=== PATIENT | male | born 1965 | race Caucasian/White ===

== ENCOUNTER 2017-11-25 14:02 | Emergency (ER) | payer OTHER ==
[2017-11-25] MEDS: ASPIRIN 325 MG TAB PO (14:30)
[2017-11-25] MEDS: LIDOCAINE/MYLANTA 40 ML BTL PO (14:30)
[2017-11-25 14:32] LABS: ADD MAN DIFF? NO
[2017-11-25 14:34] LABS: BASOPHIL # 0.1 10^3/ul (0.0-0.1); BASOPHILS % 0.6 % (0.0-2.0); EOSINOPHILS # 0.2 10^3/ul (0.0-0.5); HEMATOCRIT 43.3 % (42.0-52.0); HEMOGLOBIN 15.2 g/dl (14.0-18.0); LYMPHOCYTES # 4.1 10^3/ul (0.8-2.9); LYMPHOCYTES % 42.4 % (15.0-51.0); MEAN CORPUSCULAR HEMOGLOBIN 30.6 pg (29.0-33.0); MEAN CORPUSCULAR HGB CONC 35.1 g/dl (32.0-37.0); MEAN CORPUSCULAR VOLUME 87.1 fl (82.0-101.0); MEAN PLATELET VOLUME 10.1 fl (7.4-10.4); MONOCYTE # 0.8 10^3/ul (0.3-0.9); MONOCYTES % 8.4 % (0.0-11.0); NEUTROPHIL # 4.4 10^3/ul (1.6-7.5); NEUTROPHILS % 46.3 % (39.0-77.0); POSITIVE DIFF @See below; RED BLOOD COUNT 4.97 10^6/ul (4.70-6.10); RED CELL DISTRIBUTION WIDTH 11.7 % (11.5-14.5)
[2017-11-25 14:34] LABS: WHITE BLOOD COUNT 9.6 10^3/ul (4.8-10.8)
[2017-11-25 14:37] LABS: PLATELET COUNT 234 10^3/UL (140-415)
[2017-11-25 14:55] LABS: ANION GAP 18 (8-16); BLOOD UREA NITROGEN 11 mg/dl (7-20); CARBON DIOXIDE 22 mmol/L (21-31); CHLORIDE 105 mmol/L (97-110); GLUCOSE 143 mg/dl (70-220); POTASSIUM 4.7 mmol/L (3.5-5.1); SODIUM 140 mmol/L (135-144)
[2017-11-25 15:07] LABS: B-TYPE NATRIURETIC PEPTIDE 46 PG/ML (0-125)
[2017-11-25 15:09] LABS: TROPONIN-I < 0.012 ng/ml (0.000-0.120)
== END 2017-11-25 16:39 | disposition home or self-care (01) ==
LOC: E/R 14:02
DX: R42 Dizziness and giddiness (principal); E11.9 Type 2 diabetes mellitus without complications; I25.2 Old myocardial infarction; Z79.4 Long term (current) use of insulin; Z79.82 Long term (current) use of aspirin; Z79.84 Long term (current) use of oral hypoglycemic drugs; Z87.891 Personal history of nicotine dependence; Z98.61 Coronary angioplasty status
CPT/HCPCS: 36415; 71045; 80048; 83880; 84484; 85025; 93005; 99285-25

== ENCOUNTER 2017-12-20 10:23 | Day surgery (SDC) | payer OTHER ==
[2017-12-20] MEDS ORDERED: PROPOFOL 20 ML (13:51)
[2017-12-20] MEDS ORDERED: GLYCOPYRROLATE 0.4 MG INJ (13:51)
[2017-12-20] MEDS ORDERED: ROCURONIUM 50 MG INJ (13:51)
[2017-12-20] MEDS ORDERED: LIDOCAINE 2% (SDV) 5 ML INJ (13:51)
[2017-12-20] MEDS ORDERED: NEOSTIGMINE 3 MG/3 ML SYRINGE (13:51)
[2017-12-20] MEDS ORDERED: FENTAnyl 50 MCG/ML VIAL (13:52)
[2017-12-20] MEDS ORDERED: MIDAZOLAM 1 MG/ML 2 ML INJ (13:52)
[2017-12-20] MEDS ORDERED: SUCCINYLCHOLINE CHLORIDE 100 MG/5 ML SYG IV (13:54)
[2017-12-20] MEDS ORDERED: LABETALOL HCL 20MG INJ (14:21)
[2017-12-20] MEDS: COCAINE 4% 4 ML TOP (14:25)
[2017-12-20] MEDS ORDERED: HYDROmorphONE 1 MG/5 ML IV SYRINGE IV ×3 (14:54→16:30)
[2017-12-20] MEDS ORDERED: ONDANSETRON 4 MG INJ (14:54)
[2017-12-20] MEDS: HYDROmorphONE 1 MG/5 ML IV SYRINGE IV ×3 (14:57→16:19)
[2017-12-20] MEDS: ONDANSETRON 4 MG INJ IV (14:57)
[2017-12-20] MEDS ORDERED: hydrALAzine 20 MG INJ IV (15:00)
[2017-12-20] MEDS ORDERED: LABETALOL HCL 20MG INJ IV (15:00)
[2017-12-20] MEDS ORDERED: MEPERIDINE 25 MG INJ IV (15:00)
== END 2017-12-20 16:46 | disposition home or self-care (01) ==
LOC: SDS 10:23
DX: J38.1 Polyp of vocal cord and larynx (principal); E11.9 Type 2 diabetes mellitus without complications; I25.10 Atherosclerotic heart disease of native coronary artery without angina pectoris; E78.5 Hyperlipidemia, unspecified; Z87.891 Personal history of nicotine dependence; I25.2 Old myocardial infarction
CPT/HCPCS: 31526; 82962; 88305

== ENCOUNTER 2018-03-27 08:43 | Inpatient (IN) | payer OTHER ==
[2018-03-27] MEDS: DEXTROSE 5%-0.45% NACL 1,000 ML IV ×2 (10:33→21:54)
[2018-03-27] MEDS ORDERED: GLUCOSE GEL 15 GRAM TUBE PO ×2 (11:00)
[2018-03-27] MEDS ORDERED: ACETAMINOPHEN 650 MG SUPP PR (11:00)
[2018-03-27] MEDS ORDERED: ONDANSETRON 4 MG INJ IV (11:00)
[2018-03-27] MEDS ORDERED: GLUCOSE GEL 15 GRAM TUBE BUCCAL (11:00)
[2018-03-27] MEDS ORDERED: ACETAMINOPHEN 325 MG TAB PO (11:00)
[2018-03-27] MEDS ORDERED: NACL 0.9% 3 ML SYG IV (11:00)
[2018-03-27] MEDS ORDERED: DEXTROSE 50% 50 ML SYRINGE IV ×2 (11:00)
[2018-03-27] MEDS ORDERED: GLUCAGON 1 MG INJ IM (11:00)
[2018-03-27] MEDS: SUCRALFATE (100 MG/ML) 10ML CUP PO ×3 (12:28→21:00)
[2018-03-27] MEDS: INSULIN GLARGINE [LANTus] (100 UNITS/ML) SYG SC (12:56)
[2018-03-27] MEDS: INSULIN ASPART [NOVOLOG] 3 ML PEN SC ×3 (13:00→21:00)
[2018-03-27] MEDS: CIPROFLOXACIN 400MG/D5W 200 ML IVPB (13:22)
[2018-03-27] MEDS: metroNIDAZOLE 500 MG/NS (PMX) 100 ML IVPB ×2 (15:09→22:54)
[2018-03-27] MEDS ORDERED: NON-FORMULARY/PATIENT OWN MED (Icosapent Ethyl (Vascepa) 2 GM) PO (21:00)
[2018-03-27] MEDS: GEMFIBROZIL 600 MG TAB PO (21:00)
[2018-03-27] MEDS: TAMSULOSIN (SR) 0.4 MG CAP PO (21:00)
[2018-03-27] MEDS: IOHEXOL 14.3 MG(I)/ML (ADULT) BTL PO (21:54)
[2018-03-27] MEDS: PANTOPRAZOLE 40 MG INJ IV (21:58)
[2018-03-27 22:36] LABS: ADD UMIC NO; UR ASCORBIC ACID NEGATIVE (NEGATIVE); UR BILIRUBIN (Dip) NEGATIVE (NEGATIVE); UR BLOOD (Dip) NEGATIVE (NEGATIVE); UR CLARITY CLEAR (CLEAR); UR COLOR YELLOW (YELLOW); UR GLUCOSE (Dip) NEGATIVE (NEGATIVE); UR KETONES (Dip) NEGATIVE (NEGATIVE); UR LEUKOCYTE ESTERASE (Dip) NEGATIVE Leu/ul (NEGATIVE); UR NITRITE (Dip) NEGATIVE (NEGATIVE); UR SPECIFIC GRAVITY (Dip) 1.011 (1.003-1.030); UR TOTAL PROTEIN (Dip) NEGATIVE (NEGATIVE); UR UROBILINOGEN (Dip) NEGATIVE (NEGATIVE)
[2018-03-27] MEDS: IOHEXOL 300MG/ML 150 ML BTL (23:57)
[2018-03-27] MEDS: SOD CHLORIDE 0.9% 100 ML (23:57)
[2018-03-28] MEDS: CIPROFLOXACIN 400MG/D5W 200 ML IVPB ×3 (00:03→20:31)
[2018-03-28] MEDS: INSULIN ASPART [NOVOLOG] 3 ML PEN SC ×6 (00:57→20:37)
[2018-03-28 01:28] LABS: BLOOD UREA NITROGEN 8 mg/dl (7-20)
[2018-03-28 01:28] LABS: CREATININE 0.81 mg/dl (0.61-1.24)
[2018-03-28] MEDS: ACCU-CHEK XX (02:00)
[2018-03-28] MEDS: metroNIDAZOLE 500 MG/NS (PMX) 100 ML IVPB ×3 (05:27→22:01)
[2018-03-28] MEDS: DEXTROSE 5%-0.45% NACL 1,000 ML IV ×3 (05:31→16:33)
[2018-03-28 05:36] LABS: ADD MAN DIFF? NO
[2018-03-28 05:45] LABS: BASOPHILS % 0.3 % (0.0-2.0); EOSINOPHILS # 0.7 10^3/ul (0.0-0.5); EOSINOPHILS % 6.2 % (0.0-7.0); HEMATOCRIT 34.4 % (42.0-52.0); HEMOGLOBIN 12.2 g/dl (14.0-18.0); LYMPHOCYTES # 3.6 10^3/ul (0.8-2.9); LYMPHOCYTES % 33.6 % (15.0-51.0); MEAN CORPUSCULAR HEMOGLOBIN 30.5 pg (29.0-33.0); MEAN CORPUSCULAR HGB CONC 35.5 g/dl (32.0-37.0); MEAN PLATELET VOLUME 9.7 fl (7.4-10.4); MONOCYTES % 9.6 % (0.0-11.0); NEUTROPHIL # 5.3 10^3/ul (1.6-7.5); NEUTROPHILS % 49.9 % (39.0-77.0); PLATELET COUNT 262 10^3/UL (140-415); RED CELL DISTRIBUTION WIDTH 11.6 % (11.5-14.5)
[2018-03-28 05:45] LABS: WHITE BLOOD COUNT 10.6 10^3/ul (4.8-10.8)
[2018-03-28 06:11] LABS: LIPASE 28 U/L (23-300)
[2018-03-28 06:11] LABS: AMYLASE 43 U/L (11-123)
[2018-03-28 06:17] LABS: ALANINE AMINOTRANSFERASE 47 IU/L (13-69); ALBUMIN 3.2 g/dl (3.3-4.9); ALBUMIN/GLOBULIN RATIO 1.18; ALKALINE PHOSPHATASE 63 IU/L (42-121); ANION GAP 9 (5-13); ASPARTATE AMINO TRANSFERASE 21 IU/L (15-46); BILIRUBIN,INDIRECT 0.5 mg/dl (0-1.1); BILIRUBIN,TOTAL 0.5 mg/dl (0.2-1.3); BLOOD UREA NITROGEN 7 mg/dl (7-20); CALCIUM 8.9 mg/dl (8.4-10.2); CARBON DIOXIDE 25 mmol/L (21-31); CHLORIDE 105 mmol/L (97-110); CHOL/HDL RATIO 2.2 RATIO; CHOLESTEROL 87 mg/dl (100-200); CREATININE 0.78 mg/dl (0.61-1.24); GLUCOSE 97 mg/dl (70-220); HDL CHOLESTEROL 38 mg/dl (28-71); LDL CHOLESTEROL,CALCULATED 26 mg/dl; MAGNESIUM 1.8 mg/dl (1.7-2.5); PHOSPHORUS 4.1 mg/dl (2.5-4.9); POTASSIUM 3.4 mmol/L (3.5-5.1); SODIUM 139 mmol/L (135-144); TOTAL PROTEIN 5.9 g/dl (6.1-8.1); TRIGLYCERIDES 115 mg/dl (0-149)
[2018-03-28 06:28] LABS: HEMOGLOBIN A1C 6.5 % (0-5.9)
[2018-03-28] MEDS: GEMFIBROZIL 600 MG TAB PO ×2 (09:11→22:01)
[2018-03-28] MEDS: PANTOPRAZOLE 40 MG INJ IV ×2 (09:11→20:31)
[2018-03-28] MEDS: SUCRALFATE (100 MG/ML) 10ML CUP PO ×4 (09:11→20:30)
[2018-03-28] MEDS: ASPIRIN 81 MG TAB PO (09:11)
[2018-03-28] MEDS: LISINOPRIL 5 MG TAB PO (09:12)
[2018-03-28] MEDS: INSULIN GLARGINE [LANTus] (100 UNITS/ML) SYG SC (09:13)
[2018-03-28] MEDS: POTASSIUM CHLORIDE (SR) 20 MEQ TAB PO (09:46)
[2018-03-28] MEDS: FOSFOMYCIN 3 GM PACKET PO (11:54)
[2018-03-28] MEDS: TAMSULOSIN (SR) 0.4 MG CAP PO (20:31)
[2018-03-29] MEDS: ACCU-CHEK XX (01:05)
[2018-03-29] MEDS: DEXTROSE 5%-0.45% NACL 1,000 ML IV ×5 (02:23→22:33)
[2018-03-29] MEDS: metroNIDAZOLE 500 MG/NS (PMX) 100 ML IVPB ×3 (05:26→23:37)
[2018-03-29 05:42] LABS: ADD MAN DIFF? NO
[2018-03-29 05:52] LABS: BASOPHILS % 0.3 % (0.0-2.0); EOSINOPHILS # 0.7 10^3/ul (0.0-0.5); EOSINOPHILS % 6.6 % (0.0-7.0); HEMATOCRIT 33.6 % (42.0-52.0); HEMOGLOBIN 11.9 g/dl (14.0-18.0); LYMPHOCYTES # 3.6 10^3/ul (0.8-2.9); LYMPHOCYTES % 32.2 % (15.0-51.0); MEAN CORPUSCULAR HEMOGLOBIN 30.7 pg (29.0-33.0); MEAN CORPUSCULAR HGB CONC 35.4 g/dl (32.0-37.0); MEAN CORPUSCULAR VOLUME 86.6 fl (82.0-101.0); MEAN PLATELET VOLUME 9.7 fl (7.4-10.4); MONOCYTE # 0.9 10^3/ul (0.3-0.9); MONOCYTES % 8.4 % (0.0-11.0); NEUTROPHIL # 5.8 10^3/ul (1.6-7.5); NEUTROPHILS % 52.2 % (39.0-77.0); PLATELET COUNT 263 10^3/UL (140-415); RED BLOOD COUNT 3.88 10^6/ul (4.70-6.10); RED CELL DISTRIBUTION WIDTH 11.6 % (11.5-14.5)
[2018-03-29 05:52] LABS: WHITE BLOOD COUNT 11.1 10^3/ul (4.8-10.8)
[2018-03-29 06:20] LABS: ANION GAP 11 (5-13); BLOOD UREA NITROGEN 3 mg/dl (7-20); CALCIUM 8.4 mg/dl (8.4-10.2); CARBON DIOXIDE 23 mmol/L (21-31); CHLORIDE 108 mmol/L (97-110); CREATININE 0.71 mg/dl (0.61-1.24); Estimated GFR > 60 mL/min (>60); GLUCOSE 96 mg/dl (70-220); POTASSIUM 3.2 mmol/L (3.5-5.1); SODIUM 142 mmol/L (135-144)
[2018-03-29] MEDS: INSULIN ASPART [NOVOLOG] 3 ML PEN SC ×4 (08:00→20:43)
[2018-03-29] MEDS: PANTOPRAZOLE 40 MG INJ IV ×2 (09:03→20:24)
[2018-03-29] MEDS: CIPROFLOXACIN 400MG/D5W 200 ML IVPB ×2 (09:03→20:25)
[2018-03-29] MEDS: GEMFIBROZIL 600 MG TAB PO ×2 (09:04→20:25)
[2018-03-29] MEDS: LISINOPRIL 5 MG TAB PO (09:04)
[2018-03-29] MEDS: ASPIRIN 81 MG TAB PO (09:04)
[2018-03-29] MEDS: SUCRALFATE (100 MG/ML) 10ML CUP PO ×2 (09:04→12:34)
[2018-03-29] MEDS: INSULIN GLARGINE [LANTus] (100 UNITS/ML) SYG SC (09:18)
[2018-03-29] MEDS: morphine 2 MG INJ IV (09:19)
[2018-03-29 12:06] LABS: ERYTHROCYTE SEDIMENTATION RATE 19 mm/Hr (0-20)
[2018-03-29 12:34] LABS: C-REACTIVE PROTEIN 4.3 mg/dl (0.0-0.9)
[2018-03-29] MEDS: POTASSIUM CHLORIDE (SR) 20 MEQ TAB PO (12:35)
[2018-03-29] MEDS: BISACODYL (EC) 5 MG TAB PO (14:34)
[2018-03-29] MEDS: MAGNESIUM CITRATE 300 ML BTL PO (17:30)
[2018-03-29] MEDS: POLYETHYLENE GLYCOL 3350 119 GM POWDER PO (18:23)
[2018-03-29 19:19] LABS: TROPONIN-I < 0.012 ng/ml (0.000-0.120)
[2018-03-29] MEDS: TAMSULOSIN (SR) 0.4 MG CAP PO (20:24)
[2018-03-30 01:07] LABS: TROPONIN-I < 0.012 ng/ml (0.000-0.120)
[2018-03-30] MEDS: ACCU-CHEK XX (01:31)
[2018-03-30] MEDS: POLYETHYLENE GLYCOL 3350 119 GM POWDER PO (05:31)
[2018-03-30] MEDS: metroNIDAZOLE 500 MG/NS (PMX) 100 ML IVPB ×2 (05:31→14:14)
[2018-03-30] MEDS: INSULIN ASPART [NOVOLOG] 3 ML PEN SC ×3 (08:00→17:35)
[2018-03-30 08:23] LABS: ADD MAN DIFF? NO
[2018-03-30 08:27] LABS: WHITE BLOOD COUNT 9.5 10^3/ul (4.8-10.8)
[2018-03-30 08:27] LABS: BASOPHILS % 0.4 % (0.0-2.0); EOSINOPHILS # 0.6 10^3/ul (0.0-0.5); EOSINOPHILS % 6.1 % (0.0-7.0); HEMATOCRIT 34.2 % (42.0-52.0); HEMOGLOBIN 12.1 g/dl (14.0-18.0); LYMPHOCYTES # 2.9 10^3/ul (0.8-2.9); LYMPHOCYTES % 30.2 % (15.0-51.0); MEAN CORPUSCULAR HEMOGLOBIN 30.3 pg (29.0-33.0); MEAN CORPUSCULAR HGB CONC 35.4 g/dl (32.0-37.0); MEAN CORPUSCULAR VOLUME 85.7 fl (82.0-101.0); MEAN PLATELET VOLUME 9.7 fl (7.4-10.4); MONOCYTE # 0.8 10^3/ul (0.3-0.9); MONOCYTES % 8.7 % (0.0-11.0); NEUTROPHIL # 5.1 10^3/ul (1.6-7.5); NEUTROPHILS % 54.3 % (39.0-77.0); PLATELET COUNT 281 10^3/UL (140-415); RED BLOOD COUNT 3.99 10^6/ul (4.70-6.10); RED CELL DISTRIBUTION WIDTH 11.6 % (11.5-14.5)
[2018-03-30] MEDS: DEXTROSE 5%-0.45% NACL 1,000 ML IV ×2 (08:33→11:48)
[2018-03-30 08:43] LABS: ANION GAP 13 (5-13); BLOOD UREA NITROGEN 3 mg/dl (7-20); CARBON DIOXIDE 21 mmol/L (21-31); CHLORIDE 107 mmol/L (97-110); CREATININE 0.76 mg/dl (0.61-1.24); Estimated GFR > 60 mL/min (>60); GLUCOSE 108 mg/dl (70-220); MAGNESIUM 1.9 mg/dl (1.7-2.5); POTASSIUM 3.5 mmol/L (3.5-5.1); SODIUM 141 mmol/L (135-144)
[2018-03-30] MEDS: ASPIRIN 81 MG TAB PO (08:48)
[2018-03-30] MEDS: BISACODYL (EC) 5 MG TAB PO (08:48)
[2018-03-30] MEDS: CIPROFLOXACIN 400MG/D5W 200 ML IVPB (08:48)
[2018-03-30] MEDS: GEMFIBROZIL 600 MG TAB PO (08:48)
[2018-03-30] MEDS: PANTOPRAZOLE 40 MG INJ IV (08:48)
[2018-03-30 08:49] LABS: TROPONIN-I < 0.012 ng/ml (0.000-0.120)
[2018-03-30] MEDS: LISINOPRIL 5 MG TAB PO (08:49)
[2018-03-30] MEDS: INSULIN GLARGINE [LANTus] (100 UNITS/ML) SYG SC (08:51)
[2018-03-30 08:59] LABS: CHOL/HDL RATIO 1.8 RATIO; HDL CHOLESTEROL 45 mg/dl (28-71); LDL CHOLESTEROL,CALCULATED 19 mg/dl; TRIGLYCERIDES 83 mg/dl (0-149)
[2018-03-30 08:59] LABS: CHOLESTEROL 81 mg/dl (100-200)
== END 2018-03-30 18:55 | disposition home or self-care (01) | DRG 392 ==
LOC: 2NE 03-28 13:40 → 6WM 08:43 → PP2 21:10
PROVIDERS: Family Medicine
PROC: 0DB98ZX Excision of Duodenum, Via Natural or Artificial Opening Endoscopic, Diagnostic (ICD-10-PCS; principal; 2018-03-30 15:15)
PROC: 0DB68ZX Excision of Stomach, Via Natural or Artificial Opening Endoscopic, Diagnostic (ICD-10-PCS; 2018-03-30 15:15)
PROC: 0DBP8ZX Excision of Rectum, Via Natural or Artificial Opening Endoscopic, Diagnostic (ICD-10-PCS; 2018-03-30 15:15)
DX: K52.9 Noninfective gastroenteritis and colitis, unspecified (principal); N30.00 Acute cystitis without hematuria; I10 Essential (primary) hypertension; I25.10 Atherosclerotic heart disease of native coronary artery without angina pectoris; E78.5 Hyperlipidemia, unspecified; N40.0 Benign prostatic hyperplasia without lower urinary tract symptoms; E11.9 Type 2 diabetes mellitus without complications; I25.2 Old myocardial infarction; Z87.891 Personal history of nicotine dependence; K62.1 Rectal polyp; Z79.82 Long term (current) use of aspirin
CPT/HCPCS: 74018; 74177; 80048; 80053; 80061; 81003; 82150; 82565; 82962; 83036; 83690; 83735; 84100; 84484; 84520; 85025; 85651; 86140; 87040; 87045; 87075; 87086; 87177; 88305; 88312; 93005; 93306

== ENCOUNTER 2018-09-20 06:24 | Inpatient (IN) | payer OTHER ==
[2018-09-20 07:09] LABS: WHITE BLOOD COUNT 11.1 10^3/ul (4.8-10.8)
[2018-09-20 07:09] LABS: ADD MAN DIFF? NO; BASOPHIL # 0.1 10^3/ul (0.0-0.1); BASOPHILS % 0.4 % (0.0-2.0); EOSINOPHILS # 0.2 10^3/ul (0.0-0.5); EOSINOPHILS % 1.9 % (0.0-7.0); HEMATOCRIT 39.7 % (42.0-52.0); HEMOGLOBIN 13.7 g/dl (14.0-18.0); LYMPHOCYTES # 4.7 10^3/ul (0.8-2.9); MEAN CORPUSCULAR HGB CONC 34.5 g/dl (32.0-37.0); MEAN CORPUSCULAR VOLUME 86.9 fl (82.0-101.0); MEAN PLATELET VOLUME 9.3 fl (7.4-10.4); NEUTROPHIL # 5.2 10^3/ul (1.6-7.5); NEUTROPHILS % 46.4 % (39.0-77.0); PLATELET COUNT 320 10^3/UL (140-415); RED BLOOD COUNT 4.57 10^6/ul (4.70-6.10); RED CELL DISTRIBUTION WIDTH 11.5 % (11.5-14.5)
[2018-09-20] MEDS ORDERED: IODIXANOL LOCM 100 ML BTL (07:14)
[2018-09-20] MEDS ORDERED: LIDOCAINE 1% (MDV) 20 ML INJ (07:14)
[2018-09-20] MEDS ORDERED: MIDAZOLAM 1 MG/ML 2 ML INJ (07:14)
[2018-09-20] MEDS ORDERED: HEPARIN 1000 UNITS/ML 10 ML INJ (07:14)
[2018-09-20] MEDS ORDERED: NITROGLYCERIN (IC) 100 MCG/ML INJ (07:16)
[2018-09-20] MEDS ORDERED: VERAPAMIL 5 MG INJ (07:16)
[2018-09-20] MEDS ORDERED: FENTAnyl 50 MCG/ML VIAL (07:16)
[2018-09-20 07:35] LABS: INR 0.86; PROTIME 11.8 Sec (11.9-14.9); PT RATIO 0.9
[2018-09-20 07:42] LABS: PARTIAL THROMBOPLASTIN TIME 23.9 Sec (23.0-35.0)
[2018-09-20 07:44] LABS: ALANINE AMINOTRANSFERASE 15 IU/L (13-69); ALBUMIN 4.4 g/dl (3.3-4.9); ALBUMIN/GLOBULIN RATIO 1.33; ALKALINE PHOSPHATASE 86 IU/L (42-121); ANION GAP 12 (5-13); ASPARTATE AMINO TRANSFERASE 18 IU/L (15-46); BILIRUBIN,INDIRECT 0.3 mg/dl (0-1.1); BILIRUBIN,TOTAL 0.3 mg/dl (0.2-1.3); BLOOD UREA NITROGEN 15 mg/dl (7-20); CALCIUM 9.8 mg/dl (8.4-10.2); CARBON DIOXIDE 25 mmol/L (21-31); CHLORIDE 102 mmol/L (97-110); CREATININE 0.68 mg/dl (0.61-1.24); Estimated GFR > 60 mL/min (>60); GLUCOSE 156 mg/dl (70-220); POTASSIUM 4.3 mmol/L (3.5-5.1); SODIUM 139 mmol/L (135-144); TOTAL PROTEIN 7.7 g/dl (6.1-8.1)
[2018-09-20] MEDS: SOD CHLORIDE 0.9% 1,000 ML IV (09:24)
[2018-09-20] MEDS: ASPIRIN 81 MG TAB PO (09:34)
[2018-09-20] MEDS ORDERED: ONDANSETRON 4 MG INJ IV (13:00)
[2018-09-20] MEDS ORDERED: NACL 0.9% 3 ML SYG IV (13:00)
[2018-09-20] MEDS ORDERED: ACETAMINOPHEN 325 MG TAB PO (13:00)
[2018-09-20] MEDS ORDERED: GLUCAGON 1 MG INJ IM (14:00)
[2018-09-20] MEDS ORDERED: DEXTROSE 50% 50 ML SYRINGE IV ×2 (14:00)
[2018-09-20] MEDS ORDERED: GLUCOSE GEL 15 GRAM TUBE PO ×2 (14:00)
[2018-09-20] MEDS ORDERED: GLUCOSE GEL 15 GRAM TUBE BUCCAL (14:00)
[2018-09-20] MEDS: CEFAZOLIN 2 GM/50 ML (PMX) 50 ML IVPB (15:05)
[2018-09-20] MEDS: INSULIN ASPART [NOVOLOG] 3 ML PEN SC ×3 (17:45→20:56)
[2018-09-20] MEDS: ATORVASTATIN 40 MG TAB PO (20:47)
[2018-09-20] MEDS: METOPROLOL 25 MG TAB PO (20:47)
[2018-09-20] MEDS: TAMSULOSIN (SR) 0.4 MG CAP PO (20:47)
[2018-09-20] MEDS: INSULIN GLARGINE [LANTus] (100 UNITS/ML) SYG SC (20:53)
[2018-09-20 23:31] LABS: AMPHETAMINE/METHAMPHETAMINE Negative (NEGATIVE); BARBITURATES Negative (NEGATIVE); BENZODIAZEPINES Positive (NEGATIVE); CANNABINOIDS Negative (NEGATIVE); COCAINE Negative (NEGATIVE); OPIATES Negative (NEGATIVE)
[2018-09-21] MEDS: ACCU-CHEK XX ×6 (02:00→23:00)
[2018-09-21] MEDS: PANTOPRAZOLE (EC) 40 MG TAB PO (06:00)
[2018-09-21] MEDS ORDERED: ISOFLURANE 15 MIN (07:00)
[2018-09-21] MEDS: INSULIN ASPART [NOVOLOG] 3 ML PEN SC ×4 (07:55→11:50)
[2018-09-21 08:37] LABS: ADD MAN DIFF? NO
[2018-09-21 08:43] LABS: WHITE BLOOD COUNT 10.1 10^3/ul (4.8-10.8)
[2018-09-21 08:43] LABS: BASOPHIL # 0.1 10^3/ul (0.0-0.1); BASOPHILS % 0.7 % (0.0-2.0); EOSINOPHILS # 0.2 10^3/ul (0.0-0.5); EOSINOPHILS % 1.7 % (0.0-7.0); HEMATOCRIT 37.2 % (42.0-52.0); HEMOGLOBIN 12.9 g/dl (14.0-18.0); LYMPHOCYTES # 3.9 10^3/ul (0.8-2.9); LYMPHOCYTES % 38.8 % (15.0-51.0); MEAN CORPUSCULAR HEMOGLOBIN 30.1 pg (29.0-33.0); MEAN CORPUSCULAR HGB CONC 34.7 g/dl (32.0-37.0); MEAN CORPUSCULAR VOLUME 86.7 fl (82.0-101.0); MEAN PLATELET VOLUME 9.5 fl (7.4-10.4); MONOCYTE # 0.8 10^3/ul (0.3-0.9); MONOCYTES % 8.3 % (0.0-11.0); NEUTROPHILS % 50.1 % (39.0-77.0); PLATELET COUNT 287 10^3/UL (140-415); RED BLOOD COUNT 4.29 10^6/ul (4.70-6.10); RED CELL DISTRIBUTION WIDTH 11.8 % (11.5-14.5)
[2018-09-21] MEDS: ASPIRIN 81 MG TAB PO (08:47)
[2018-09-21] MEDS: METOPROLOL 25 MG TAB PO (08:47)
[2018-09-21 09:01] LABS: ALANINE AMINOTRANSFERASE 26 IU/L (13-69); ALBUMIN/GLOBULIN RATIO 1.37; ALKALINE PHOSPHATASE 73 IU/L (42-121); ANION GAP 11 (5-13); ASPARTATE AMINO TRANSFERASE 22 IU/L (15-46); BILIRUBIN,INDIRECT 0.3 mg/dl (0-1.1); BILIRUBIN,TOTAL 0.3 mg/dl (0.2-1.3); BLOOD UREA NITROGEN 12 mg/dl (7-20); CALCIUM 9.2 mg/dl (8.4-10.2); CARBON DIOXIDE 26 mmol/L (21-31); CHLORIDE 102 mmol/L (97-110); CHOL/HDL RATIO 6.5 RATIO; CHOLESTEROL 255 mg/dl (100-200); CREATININE 0.65 mg/dl (0.61-1.24); Estimated GFR > 60 mL/min (>60); GLUCOSE 115 mg/dl (70-220); HDL CHOLESTEROL 39 mg/dl (28-71); LDL CHOLESTEROL,CALCULATED 151 mg/dl; MAGNESIUM 1.9 mg/dl (1.7-2.5); SODIUM 139 mmol/L (135-144); TOTAL PROTEIN 6.9 g/dl (6.1-8.1); TRIGLYCERIDES 327 mg/dl (0-149)
[2018-09-21 09:03] LABS: PARTIAL THROMBOPLASTIN TIME 23.9 Sec (23.0-35.0); PROTIME 12.3 Sec (11.9-14.9)
[2018-09-21 09:03] LABS: HEMOGLOBIN A1C 7.4 % (0-5.9)
[2018-09-21] MEDS: CEFAZOLIN 2 GM/50 ML (PMX) 50 ML IVPB (13:46)
[2018-09-21] MEDS ORDERED: MIDAZOLAM 5 ML ×3 (14:23→16:45)
[2018-09-21] MEDS ORDERED: HEPARIN 1000 UNITS/ML 10 ML INJ ×2 (14:33→16:21)
[2018-09-21] MEDS ORDERED: POTASSIUM CHLORIDE 40 MEQ INJ (14:34)
[2018-09-21] MEDS ORDERED: LIDOCAINE 100 MG SYRINGE (14:34)
[2018-09-21] MEDS ORDERED: MAGNESIUM SULFATE (MG) 50% 10 ML INJ (14:34)
[2018-09-21] MEDS ORDERED: MANNITOL 20% 500 ML (14:34)
[2018-09-21] MEDS ORDERED: NA BICARBONATE 8.4% 50 ML SYG (14:34)
[2018-09-21] MEDS ORDERED: AMINOCAPROIC ACID 5 GM INJ (14:35)
[2018-09-21] MEDS ORDERED: CA CHLORIDE 10% 10 ML SYRINGE (14:35)
[2018-09-21] MEDS ORDERED: ALBUMIN HUMAN 25% 100 ML (14:35)
[2018-09-21] MEDS ORDERED: PHENYLephrine 10 MG INJ (14:36)
[2018-09-21] MEDS ORDERED: SODIUM CL BACTERIOSTATIC 30 ML INJ (16:31)
[2018-09-21] MEDS ORDERED: HEPARIN 10,000 UNITS/ML 1 ML INJ (16:43)
[2018-09-21] MEDS: VANCOMYCIN 1 GM INJ ×3 (16:45→17:12)
[2018-09-21] MEDS: PAPAVERINE 60 MG INJ (16:45)
[2018-09-21] MEDS: HEPARIN 1000 UNITS/ML 10 ML INJ (16:47)
[2018-09-21] MEDS ORDERED: CEFAZOLIN 1 GM INJ (17:58)
[2018-09-21] MEDS ORDERED: PROTAMINE 250 MG INJ (18:00)
[2018-09-21] MEDS ORDERED: FUROSEMIDE 20 MG INJ (18:38)
[2018-09-21] MEDS ORDERED: ETOMIDATE 20 MG INJ (19:05)
[2018-09-21] MEDS ORDERED: ROCURONIUM 50 MG INJ (19:05)
[2018-09-21] MEDS ORDERED: LIDOCAINE 2% (SDV) 5 ML INJ (19:05)
[2018-09-21] MEDS ORDERED: ACETAMINOPHEN 325 MG TAB PO (19:30)
[2018-09-21] MEDS ORDERED: DEXTROSE 50% 50 ML SYRINGE IV ×2 (19:30)
[2018-09-21] MEDS ORDERED: NITROGLYCERIN 50 MG/D5W (PMX) 250 ML IV (19:30)
[2018-09-21] MEDS ORDERED: MAGNESIUM SULFATE 1 GM/D5W 100 ML IVPB (19:30)
[2018-09-21] MEDS ORDERED: DOPamine-D5W 1.6 MG/ML 250 ML IV (19:30)
[2018-09-21] MEDS: PHENYLephrine 20MG IN 250 ML 250 ML IV ×3 (20:00→23:30)
[2018-09-21] MEDS: ASPIRIN 600 MG SUPP PR (20:00)
[2018-09-21] MEDS: MILRINONE LACTATE 2 MG in SOD CHLORIDE 0.9% 50 ML IV (20:00)
[2018-09-21] MEDS: HEPARIN (10000 UNITS/ML) 10,000 UNIT, MILRINONE LACTATE 10 MG in SOD CHLORIDE 0.9% 1,00... SC (20:00)
[2018-09-21] MEDS: EPINEPHrine 4 MG in DEXTROSE 5% 246 ML IV (20:00)
[2018-09-21] MEDS: NORepinephrine 8MG/250 ML (PMX 250 ML IV (20:00)
[2018-09-21] MEDS: DOPamine-D5W 1.6 MG/ML 250 ML IV (20:09)
[2018-09-21] MEDS: NITROGLYCERIN 50 MG/D5W (PMX) 250 ML IV (20:09)
[2018-09-21] MEDS: FAMOTIDINE 20 MG INJ IV (20:11)
[2018-09-21] MEDS: CEFAZOLIN 1 GM/50 ML (PMX) 50 ML IVPB (20:11)
[2018-09-21 20:12] LABS: ABNORMAL IP MESSAGE 1; HEMATOCRIT 33.7 % (42.0-52.0); HEMOGLOBIN 11.8 g/dl (14.0-18.0); MEAN CORPUSCULAR HEMOGLOBIN 30.4 pg (29.0-33.0); MEAN CORPUSCULAR VOLUME 86.9 fl (82.0-101.0); MEAN PLATELET VOLUME 9.1 fl (7.4-10.4); PLATELET COUNT 230 10^3/UL (140-415); POSITIVE DIFF @See below; RED BLOOD COUNT 3.88 10^6/ul (4.70-6.10); RED CELL DISTRIBUTION WIDTH 11.8 % (11.5-14.5)
[2018-09-21 20:12] LABS: WHITE BLOOD COUNT 26.3 10^3/ul (4.8-10.8)
[2018-09-21 20:16] LABS: AADO2 Arterial 357.3 mmHg (7.0-24.0); Arterial Base Excess -4.3 mmol/L (-3.0-3); Arterial Blood Gas Oxygen Sat 96.1 mmHG (95.0-98.0); Arterial COHb 0.2 % (0.0-3.0); Arterial Fraction of Oxyhgb 95.6 % (93.0-99.0); Arterial HCO3 21.3 mmol/L (22.0-26.0); Arterial MetHb 0.3 % (0.0-1.5); Arterial pCO2 41.4 mmhg (35-45); MODE VENT - AC; Site A-Line
[2018-09-21 20:18] LABS: MODE VENT - AC; MetHgb Mixed Venous 0.3 %; Mixed Venous Base Excess -1.5 mmol/L; Mixed Venous COHb 0.3 %; Mixed Venous Fraction OxyHgb 69.7 %; Mixed Venous Oxygen Sat 70.1 mmHG (65.0-75.0); Mixed Venous Total Hemglobin 12.5 g/dl; Sample Type Blood venous; Site VENOUS LINE
[2018-09-21 20:23] LABS: ADD MAN DIFF? YES
[2018-09-21 20:32] LABS: INR 1.21; PROTIME 15.4 Sec (11.9-14.9); PT RATIO 1.2
[2018-09-21 20:33] LABS: PARTIAL THROMBOPLASTIN TIME 24.5 Sec (23.0-35.0)
[2018-09-21 20:39] LABS: ANION GAP 9 (5-13); BLOOD UREA NITROGEN 12 mg/dl (7-20); CALCIUM 9.1 mg/dl (8.4-10.2); CARBON DIOXIDE 24 mmol/L (21-31); CHLORIDE 106 mmol/L (97-110); CREATININE 0.84 mg/dl (0.61-1.24); Estimated GFR > 60 mL/min (>60); GLUCOSE 104 mg/dl (70-220); POTASSIUM 3.7 mmol/L (3.5-5.1); SODIUM 139 mmol/L (135-144)
[2018-09-21 20:47] LABS: BAND NEUTROPHILS % (M) 4 % (0-4); EOSINOPHILS % (M) 2 % (0-7); LYMPHOCYTES #M 3.1 10^3/ul (0.8-2.9); LYMPHOCYTES % (M) 12 % (15-51); MONOCYTE #M 1.5 10^3/ul (0.3-0.9); MONOCYTES % (M) 6 % (0-11); PLATELET ESTIMATE NORMAL; REACTIVE LYMPHOCYTES #M 1.5 10^3/ul (0.0-0.0); REACTIVE LYMPHOCYTES% (M) 6 % (0-0); SEG NEUT #M 18.7 10^3/ul (1.6-7.5); SEGMENTED NEUTROPHILS (M) % 70 % (39-77)
[2018-09-21] MEDS ORDERED: PROPOFOL 100 ML (20:49)
[2018-09-21] MEDS ORDERED: PHENYLephrine 40 MG in DEXTROSE 5% 246 ML IV (21:00)
[2018-09-21] MEDS: POTASSIUM CHLORIDE 50 ML IVPB ×3 (21:18→22:22)
[2018-09-21] MEDS: PROPOFOL 100 ML IV (21:21)
[2018-09-21] MEDS: POTASSIUM CHLORIDE 40 MEQ, CALCIUM CHLORIDE 10% 1 GM in DEXTROSE 5%-0.225% NACL 1,000 ML IV (22:09)
[2018-09-21 23:38] LABS: POTASSIUM 4.6 mmol/L (3.5-5.1)
[2018-09-21] MEDS: HYDROmorphONE 0.5 MG/0.5 ML SYG IV (23:44)
[2018-09-22] MEDS: INSULIN HUMAN REGULAR 100 UNIT in SOD CHLORIDE 0.9% 99 ML IV ×2 (00:02→14:05)
[2018-09-22] MEDS: ACCU-CHEK XX ×24 (00:31→23:00)
[2018-09-22] MEDS: PROPOFOL 100 ML IV (00:36)
[2018-09-22] MEDS: POTASSIUM CHLORIDE 50 ML IVPB (00:36)
[2018-09-22] MEDS: PHENYLephrine 20MG IN 250 ML 250 ML IV (02:51)
[2018-09-22] MEDS: CEFAZOLIN 1 GM/50 ML (PMX) 50 ML IVPB ×2 (03:28→11:42)
[2018-09-22] MEDS: HYDROmorphONE 0.5 MG/0.5 ML SYG IV ×2 (03:28→06:30)
[2018-09-22 05:25] LABS: ADD MAN DIFF? NO
[2018-09-22 05:26] LABS: WHITE BLOOD COUNT 19.1 10^3/ul (4.8-10.8)
[2018-09-22 05:26] LABS: ABNORMAL IP MESSAGE 1; BASOPHIL # 0.1 10^3/ul (0.0-0.1); BASOPHILS % 0.3 % (0.0-2.0); EOSINOPHILS % 0.1 % (0.0-7.0); HEMATOCRIT 33.6 % (42.0-52.0); HEMOGLOBIN 11.6 g/dl (14.0-18.0); LYMPHOCYTES % 10.6 % (15.0-51.0); MEAN CORPUSCULAR HEMOGLOBIN 30.8 pg (29.0-33.0); MEAN CORPUSCULAR HGB CONC 34.5 g/dl (32.0-37.0); MEAN CORPUSCULAR VOLUME 89.1 fl (82.0-101.0); MEAN PLATELET VOLUME 9.9 fl (7.4-10.4); MONOCYTE # 1.8 10^3/ul (0.3-0.9); MONOCYTES % 9.2 % (0.0-11.0); NEUTROPHIL # 15.1 10^3/ul (1.6-7.5); NEUTROPHILS % 79.2 % (39.0-77.0); PLATELET COUNT 270 10^3/UL (140-415); POSITIVE DIFF @See below; RED BLOOD COUNT 3.77 10^6/ul (4.70-6.10); RED CELL DISTRIBUTION WIDTH 12.2 % (11.5-14.5)
[2018-09-22 05:48] LABS: INR 1.06; PROTIME 13.9 Sec (11.9-14.9); PT RATIO 1.1
[2018-09-22 05:49] LABS: PARTIAL THROMBOPLASTIN TIME 30.4 Sec (23.0-35.0)
[2018-09-22 05:55] LABS: ANION GAP 7 (5-13); BLOOD UREA NITROGEN 11 mg/dl (7-20); CALCIUM 8.8 mg/dl (8.4-10.2); CARBON DIOXIDE 23 mmol/L (21-31); CHLORIDE 110 mmol/L (97-110); CREATININE 0.76 mg/dl (0.61-1.24); Estimated GFR > 60 mL/min (>60); GLUCOSE 181 mg/dl (70-220); MAGNESIUM 2.3 mg/dl (1.7-2.5); POTASSIUM 4.9 mmol/L (3.5-5.1); SODIUM 140 mmol/L (135-144)
[2018-09-22 05:59] LABS: AADO2 Arterial 144.7 mmHg (7.0-24.0); Arterial Base Excess -5.5 mmol/L (-3.0-3); Arterial Blood Gas Oxygen Sat 96.9 mmHG (95.0-98.0); Arterial COHb 0.2 % (0.0-3.0); Arterial Fraction of Oxyhgb 96.6 % (93.0-99.0); Arterial HCO3 19.2 mmol/L (22.0-26.0); Arterial MetHb 0.1 % (0.0-1.5); Arterial pCO2 34.6 mmhg (35-45); Blood Gas Low PEEP Setting 0 cmH2O; MODE VENT - CPAP; Site A-Line
[2018-09-22 07:22] LABS: MODE NASAL CANNULA; MetHgb Mixed Venous 0.1 %; Mixed Venous COHb 0.3 %; Mixed Venous Oxygen Sat 67.3 mmHG (65.0-75.0); Mixed Venous Total Hemglobin 12.2 g/dl; Sample Type BLMV; Site OTHER
[2018-09-22] MEDS: OXYCODONE/ACETAMINOPHEN (5/325) TAB PO ×2 (08:26→14:07)
[2018-09-22] MEDS: HYDROmorphONE 1 MG/ML SYG IV ×5 (08:40→23:16)
[2018-09-22] MEDS: INSULIN HUMAN REGULAR 100 UNIT in SOD CHLORIDE 0.9% 99 ML IVPB (08:49)
[2018-09-22] MEDS: FAMOTIDINE 20 MG TAB PO ×2 (09:15→21:27)
[2018-09-22] MEDS: ENOXAPARIN 40 MG/0.4 ML SYG SC (09:16)
[2018-09-22 19:51] LABS: HEMATOCRIT 29.7 % (42.0-52.0)
[2018-09-23] MEDS: OXYCODONE/ACETAMINOPHEN (5/325) TAB PO ×4 (01:04→18:01)
[2018-09-23] MEDS: ACCU-CHEK XX ×24 (01:29→23:00)
[2018-09-23] MEDS: HYDROmorphONE 1 MG/ML SYG IV ×4 (02:17→22:56)
[2018-09-23 05:29] LABS: ADD MAN DIFF? NO
[2018-09-23 05:33] LABS: WHITE BLOOD COUNT 17.7 10^3/ul (4.8-10.8)
[2018-09-23 05:33] LABS: ABNORMAL IP MESSAGE 1; BASOPHIL # 0.1 10^3/ul (0.0-0.1); BASOPHILS % 0.3 % (0.0-2.0); EOSINOPHILS # 0.1 10^3/ul (0.0-0.5); EOSINOPHILS % 0.3 % (0.0-7.0); HEMATOCRIT 29.8 % (42.0-52.0); HEMOGLOBIN 10.1 g/dl (14.0-18.0); LYMPHOCYTES # 3.6 10^3/ul (0.8-2.9); LYMPHOCYTES % 20.2 % (15.0-51.0); MEAN CORPUSCULAR HEMOGLOBIN 29.9 pg (29.0-33.0); MEAN CORPUSCULAR HGB CONC 33.9 g/dl (32.0-37.0); MEAN CORPUSCULAR VOLUME 88.2 fl (82.0-101.0); MEAN PLATELET VOLUME 9.6 fl (7.4-10.4); MONOCYTES % 11.2 % (0.0-11.0); NEUTROPHILS % 67.6 % (39.0-77.0); PLATELET COUNT 200 10^3/UL (140-415); POSITIVE DIFF @See below; RED BLOOD COUNT 3.38 10^6/ul (4.70-6.10); RED CELL DISTRIBUTION WIDTH 11.7 % (11.5-14.5)
[2018-09-23 05:51] LABS: PROTIME 14.3 Sec (11.9-14.9); PT RATIO 1.1
[2018-09-23 05:52] LABS: PARTIAL THROMBOPLASTIN TIME 32.6 Sec (23.0-35.0)
[2018-09-23 05:55] LABS: ANION GAP 8 (5-13); BLOOD UREA NITROGEN 12 mg/dl (7-20); CALCIUM 8.8 mg/dl (8.4-10.2); CARBON DIOXIDE 24 mmol/L (21-31); CHLORIDE 103 mmol/L (97-110); Estimated GFR > 60 mL/min (>60); GLUCOSE 107 mg/dl (70-220); POTASSIUM 4.4 mmol/L (3.5-5.1); SODIUM 135 mmol/L (135-144)
[2018-09-23] MEDS: ENOXAPARIN 40 MG/0.4 ML SYG SC (09:09)
[2018-09-23] MEDS: FAMOTIDINE 20 MG TAB PO ×2 (09:11→20:41)
[2018-09-23] MEDS: INSULIN GLARGINE [LANTus] (100 UNITS/ML) SYG SC (11:58)
[2018-09-23] MEDS: INSULIN ASPART [NOVOLOG] 3 ML PEN SC ×5 (11:59→20:47)
[2018-09-23] MEDS: LISINOPRIL 5 MG TAB PO (16:18)
[2018-09-23] MEDS: ATORVASTATIN 40 MG TAB PO (20:41)
[2018-09-23] MEDS: METOPROLOL 50 MG TAB PO (20:42)
[2018-09-23] MEDS: KETOROLAC 30 MG INJ IV (20:43)
[2018-09-23] MEDS ORDERED: METOPROLOL 50 MG TAB PO (21:00)
[2018-09-23] MEDS: SOD CHLORIDE 0.9% 500 ML IV (23:02)
[2018-09-24] MEDS: ACCU-CHEK XX ×3 (01:00→02:00)
[2018-09-24] MEDS: OXYCODONE/ACETAMINOPHEN (5/325) TAB PO ×4 (04:07→21:28)
[2018-09-24 05:01] LABS: ADD MAN DIFF? NO
[2018-09-24] MEDS: KETOROLAC 30 MG INJ IV ×2 (05:05→13:55)
[2018-09-24 05:07] LABS: BASOPHILS % 0.3 % (0.0-2.0); EOSINOPHILS # 0.2 10^3/ul (0.0-0.5); EOSINOPHILS % 1.3 % (0.0-7.0); HEMATOCRIT 24.2 % (42.0-52.0); HEMOGLOBIN 8.3 g/dl (14.0-18.0); LYMPHOCYTES # 2.7 10^3/ul (0.8-2.9); LYMPHOCYTES % 23.1 % (15.0-51.0); MEAN CORPUSCULAR HEMOGLOBIN 30.4 pg (29.0-33.0); MEAN CORPUSCULAR HGB CONC 34.3 g/dl (32.0-37.0); MEAN CORPUSCULAR VOLUME 88.6 fl (82.0-101.0); MEAN PLATELET VOLUME 9.6 fl (7.4-10.4); MONOCYTE # 1.3 10^3/ul (0.3-0.9); MONOCYTES % 11.1 % (0.0-11.0); NEUTROPHIL # 7.5 10^3/ul (1.6-7.5); NEUTROPHILS % 63.7 % (39.0-77.0); PLATELET COUNT 167 10^3/UL (140-415); RED BLOOD COUNT 2.73 10^6/ul (4.70-6.10); RED CELL DISTRIBUTION WIDTH 11.8 % (11.5-14.5)
[2018-09-24 05:07] LABS: WHITE BLOOD COUNT 11.8 10^3/ul (4.8-10.8)
[2018-09-24 05:48] LABS: ANION GAP 7 (5-13); BLOOD UREA NITROGEN 19 mg/dl (7-20); CALCIUM 8.6 mg/dl (8.4-10.2); CARBON DIOXIDE 25 mmol/L (21-31); CHLORIDE 100 mmol/L (97-110); CREATININE 1.33 mg/dl (0.61-1.24); Estimated GFR 57 mL/min (>60); GLUCOSE 147 mg/dl (70-220); MAGNESIUM 2.1 mg/dl (1.7-2.5); POTASSIUM 4.5 mmol/L (3.5-5.1); SODIUM 132 mmol/L (135-144)
[2018-09-24] MEDS: INSULIN GLARGINE [LANTus] (100 UNITS/ML) SYG SC (08:08)
[2018-09-24] MEDS: INSULIN ASPART [NOVOLOG] 3 ML PEN SC ×7 (08:10→22:52)
[2018-09-24] MEDS: FAMOTIDINE 20 MG TAB PO ×2 (09:36→20:45)
[2018-09-24] MEDS: LISINOPRIL 5 MG TAB PO (09:37)
[2018-09-24] MEDS: METOPROLOL 50 MG TAB PO ×3 (09:37→21:00)
[2018-09-24] MEDS: ENOXAPARIN 40 MG/0.4 ML SYG SC (09:48)
[2018-09-24] MEDS: ASPIRIN 81 MG TAB PO (09:50)
[2018-09-24] MEDS: HYDROmorphONE 1 MG/ML SYG IV (11:16)
[2018-09-24] MEDS: ONDANSETRON 4 MG INJ IV (13:55)
[2018-09-24] MEDS: SOD CHLORIDE 0.9% 1,000 ML IV (18:11)
[2018-09-24] MEDS: ATORVASTATIN 40 MG TAB PO (20:45)
[2018-09-25] MEDS: ACCU-CHEK XX (02:00)
[2018-09-25] MEDS: SOD CHLORIDE 0.9% 1,000 ML IV (02:42)
[2018-09-25] MEDS: OXYCODONE/ACETAMINOPHEN (5/325) TAB PO ×2 (02:42→14:41)
[2018-09-25 06:34] LABS: ADD MAN DIFF? NO
[2018-09-25 06:43] LABS: WHITE BLOOD COUNT 11.1 10^3/ul (4.8-10.8)
[2018-09-25 06:43] LABS: BASOPHILS % 0.3 % (0.0-2.0); EOSINOPHILS # 0.4 10^3/ul (0.0-0.5); EOSINOPHILS % 3.4 % (0.0-7.0); HEMATOCRIT 25.2 % (42.0-52.0); HEMOGLOBIN 8.6 g/dl (14.0-18.0); LYMPHOCYTES # 2.6 10^3/ul (0.8-2.9); LYMPHOCYTES % 23.5 % (15.0-51.0); MEAN CORPUSCULAR HEMOGLOBIN 30.4 pg (29.0-33.0); MEAN CORPUSCULAR HGB CONC 34.1 g/dl (32.0-37.0); MEAN PLATELET VOLUME 10.2 fl (7.4-10.4); MONOCYTE # 1.3 10^3/ul (0.3-0.9); MONOCYTES % 11.3 % (0.0-11.0); NEUTROPHIL # 6.8 10^3/ul (1.6-7.5); PLATELET COUNT 209 10^3/UL (140-415); RED BLOOD COUNT 2.83 10^6/ul (4.70-6.10); RED CELL DISTRIBUTION WIDTH 11.8 % (11.5-14.5)
[2018-09-25 07:12] LABS: ANION GAP 10 (5-13); BLOOD UREA NITROGEN 21 mg/dl (7-20); CALCIUM 8.2 mg/dl (8.4-10.2); CARBON DIOXIDE 25 mmol/L (21-31); CHLORIDE 99 mmol/L (97-110); CREATININE 1.01 mg/dl (0.61-1.24); Estimated GFR > 60 mL/min (>60); GLUCOSE 135 mg/dl (70-220); MAGNESIUM 2.5 mg/dl (1.7-2.5); PHOSPHORUS 4.2 mg/dl (2.5-4.9); POTASSIUM 4.6 mmol/L (3.5-5.1); SODIUM 134 mmol/L (135-144)
[2018-09-25] MEDS: INSULIN ASPART [NOVOLOG] 3 ML PEN SC ×7 (07:35→21:40)
[2018-09-25] MEDS: FAMOTIDINE 20 MG TAB PO ×2 (07:51→20:21)
[2018-09-25] MEDS: METOPROLOL 50 MG TAB PO ×3 (07:51→20:21)
[2018-09-25] MEDS: ASPIRIN 81 MG TAB PO (07:51)
[2018-09-25] MEDS: ENOXAPARIN 40 MG/0.4 ML SYG SC (07:53)
[2018-09-25] MEDS: INSULIN GLARGINE [LANTus] (100 UNITS/ML) SYG SC (07:54)
[2018-09-25] MEDS: HYDROmorphONE 1 MG/ML SYG IV ×2 (09:27→23:29)
[2018-09-25] MEDS: FUROSEMIDE 40 MG INJ IV (13:25)
[2018-09-25] MEDS: ATORVASTATIN 40 MG TAB PO (20:21)
[2018-09-26] MEDS: ACCU-CHEK XX (02:00)
[2018-09-26] MEDS: HYDROmorphONE 1 MG/ML SYG IV (05:21)
[2018-09-26] MEDS: FUROSEMIDE 40 MG INJ IV ×2 (05:22→17:19)
[2018-09-26 05:59] LABS: ADD MAN DIFF? NO
[2018-09-26 06:16] LABS: WHITE BLOOD COUNT 8.7 10^3/ul (4.8-10.8)
[2018-09-26 06:16] LABS: BASOPHILS % 0.5 % (0.0-2.0); EOSINOPHILS # 0.4 10^3/ul (0.0-0.5); EOSINOPHILS % 4.5 % (0.0-7.0); HEMATOCRIT 26.7 % (42.0-52.0); LYMPHOCYTES # 2.2 10^3/ul (0.8-2.9); LYMPHOCYTES % 25.2 % (15.0-51.0); MEAN CORPUSCULAR HGB CONC 33.7 g/dl (32.0-37.0); MEAN PLATELET VOLUME 9.8 fl (7.4-10.4); MONOCYTE # 0.9 10^3/ul (0.3-0.9); MONOCYTES % 10.8 % (0.0-11.0); NEUTROPHIL # 5.1 10^3/ul (1.6-7.5); NEUTROPHILS % 58.3 % (39.0-77.0); PLATELET COUNT 314 10^3/UL (140-415); RED CELL DISTRIBUTION WIDTH 11.8 % (11.5-14.5)
[2018-09-26 06:48] LABS: ANION GAP 8 (5-13); BLOOD UREA NITROGEN 11 mg/dl (7-20); CALCIUM 9.1 mg/dl (8.4-10.2); CARBON DIOXIDE 28 mmol/L (21-31); CHLORIDE 103 mmol/L (97-110); CREATININE 0.79 mg/dl (0.61-1.24); Estimated GFR > 60 mL/min (>60); GLUCOSE 159 mg/dl (70-220); MAGNESIUM 2.3 mg/dl (1.7-2.5); PHOSPHORUS 4.1 mg/dl (2.5-4.9); POTASSIUM 4.2 mmol/L (3.5-5.1); SODIUM 139 mmol/L (135-144)
[2018-09-26] MEDS: INSULIN ASPART [NOVOLOG] 3 ML PEN SC ×7 (08:00→21:00)
[2018-09-26] MEDS: FAMOTIDINE 20 MG TAB PO ×2 (08:06→22:05)
[2018-09-26] MEDS: ASPIRIN 81 MG TAB PO (08:06)
[2018-09-26] MEDS: METOPROLOL 50 MG TAB PO ×3 (08:08→22:05)
[2018-09-26] MEDS: INSULIN GLARGINE [LANTus] (100 UNITS/ML) SYG SC (08:13)
[2018-09-26] MEDS: ENOXAPARIN 40 MG/0.4 ML SYG SC (08:16)
[2018-09-26] MEDS: OXYCODONE/ACETAMINOPHEN (5/325) TAB PO (11:54)
[2018-09-26] MEDS: ATORVASTATIN 40 MG TAB PO (22:05)
[2018-09-27] MEDS: ACCU-CHEK XX (02:00)
[2018-09-27] MEDS: OXYCODONE/ACETAMINOPHEN (5/325) TAB PO ×2 (02:47→21:17)
[2018-09-27 05:24] LABS: ADD MAN DIFF? NO
[2018-09-27 05:43] LABS: WHITE BLOOD COUNT 9.1 10^3/ul (4.8-10.8)
[2018-09-27 05:43] LABS: BASOPHIL # 0.1 10^3/ul (0.0-0.1); BASOPHILS % 0.5 % (0.0-2.0); EOSINOPHILS # 0.4 10^3/ul (0.0-0.5); EOSINOPHILS % 4.3 % (0.0-7.0); HEMATOCRIT 26.5 % (42.0-52.0); HEMOGLOBIN 9.1 g/dl (14.0-18.0); LYMPHOCYTES # 2.5 10^3/ul (0.8-2.9); LYMPHOCYTES % 26.9 % (15.0-51.0); MEAN CORPUSCULAR HEMOGLOBIN 30.3 pg (29.0-33.0); MEAN CORPUSCULAR HGB CONC 34.3 g/dl (32.0-37.0); MEAN CORPUSCULAR VOLUME 88.3 fl (82.0-101.0); MEAN PLATELET VOLUME 9.9 fl (7.4-10.4); MONOCYTE # 1.1 10^3/ul (0.3-0.9); NEUTROPHIL # 5.1 10^3/ul (1.6-7.5); NEUTROPHILS % 55.9 % (39.0-77.0); PLATELET COUNT 356 10^3/UL (140-415); RED CELL DISTRIBUTION WIDTH 11.7 % (11.5-14.5)
[2018-09-27] MEDS: FUROSEMIDE 40 MG INJ IV ×2 (05:48→17:35)
[2018-09-27 06:32] LABS: ANION GAP 8 (5-13); BLOOD UREA NITROGEN 12 mg/dl (7-20); CALCIUM 8.7 mg/dl (8.4-10.2); CARBON DIOXIDE 29 mmol/L (21-31); CHLORIDE 101 mmol/L (97-110); CREATININE 0.68 mg/dl (0.61-1.24); Estimated GFR > 60 mL/min (>60); GLUCOSE 131 mg/dl (70-220); PHOSPHORUS 4.8 mg/dl (2.5-4.9); POTASSIUM 4.3 mmol/L (3.5-5.1); SODIUM 138 mmol/L (135-144)
[2018-09-27] MEDS: INSULIN ASPART [NOVOLOG] 3 ML PEN SC ×7 (08:00→22:56)
[2018-09-27] MEDS: ASPIRIN 81 MG TAB PO (08:41)
[2018-09-27] MEDS: METOPROLOL 50 MG TAB PO ×3 (08:41→21:17)
[2018-09-27] MEDS: FAMOTIDINE 20 MG TAB PO ×2 (08:41→21:17)
[2018-09-27] MEDS: ENOXAPARIN 40 MG/0.4 ML SYG SC (09:00)
[2018-09-27] MEDS: INSULIN GLARGINE [LANTus] (100 UNITS/ML) SYG SC (10:01)
[2018-09-27] MEDS: ATORVASTATIN 40 MG TAB PO (21:16)
[2018-09-28] MEDS: ACCU-CHEK XX (02:07)
[2018-09-28 05:39] LABS: ADD MAN DIFF? NO
[2018-09-28 05:50] LABS: BASOPHIL # 0.1 10^3/ul (0.0-0.1); BASOPHILS % 0.6 % (0.0-2.0); EOSINOPHILS # 0.5 10^3/ul (0.0-0.5); EOSINOPHILS % 5.1 % (0.0-7.0); HEMATOCRIT 29.1 % (42.0-52.0); HEMOGLOBIN 9.8 g/dl (14.0-18.0); LYMPHOCYTES # 3.4 10^3/ul (0.8-2.9); LYMPHOCYTES % 32.1 % (15.0-51.0); MEAN CORPUSCULAR HEMOGLOBIN 29.4 pg (29.0-33.0); MEAN CORPUSCULAR HGB CONC 33.7 g/dl (32.0-37.0); MEAN CORPUSCULAR VOLUME 87.4 fl (82.0-101.0); MEAN PLATELET VOLUME 9.8 fl (7.4-10.4); MONOCYTE # 1.1 10^3/ul (0.3-0.9); MONOCYTES % 10.1 % (0.0-11.0); NEUTROPHIL # 5.4 10^3/ul (1.6-7.5); NEUTROPHILS % 51.4 % (39.0-77.0); PLATELET COUNT 452 10^3/UL (140-415); RED BLOOD COUNT 3.33 10^6/ul (4.70-6.10); RED CELL DISTRIBUTION WIDTH 11.7 % (11.5-14.5)
[2018-09-28 05:50] LABS: WHITE BLOOD COUNT 10.5 10^3/ul (4.8-10.8)
[2018-09-28] MEDS: FUROSEMIDE 40 MG INJ IV (06:31)
[2018-09-28 06:36] LABS: ANION GAP 9 (5-13); BLOOD UREA NITROGEN 13 mg/dl (7-20); CALCIUM 9.1 mg/dl (8.4-10.2); CARBON DIOXIDE 31 mmol/L (21-31); CHLORIDE 98 mmol/L (97-110); CREATININE 0.79 mg/dl (0.61-1.24); Estimated GFR > 60 mL/min (>60); GLUCOSE 130 mg/dl (70-220); PHOSPHORUS 4.9 mg/dl (2.5-4.9); POTASSIUM 3.7 mmol/L (3.5-5.1); SODIUM 138 mmol/L (135-144)
[2018-09-28] MEDS: INSULIN ASPART [NOVOLOG] 3 ML PEN SC ×2 (07:36)
[2018-09-28] MEDS: METOPROLOL 50 MG TAB PO (07:44)
[2018-09-28] MEDS: ASPIRIN 81 MG TAB PO (07:44)
[2018-09-28] MEDS: FAMOTIDINE 20 MG TAB PO (07:44)
[2018-09-28] MEDS: ENOXAPARIN 40 MG/0.4 ML SYG SC (07:45)
[2018-09-28] MEDS: INSULIN GLARGINE [LANTus] (100 UNITS/ML) SYG SC (07:45)
== END 2018-09-28 11:08 | disposition home or self-care (01) | DRG 233 ==
LOC: SDS 06:24 → REC 09:24 → ICU 09-21 17:43 → 6WM 09-24 22:15 → TEL 12:03
PROC: 021209W Bypass Coronary Artery, Three Arteries from Aorta with Autologous Venous Tissue, Open Approach (ICD-10-PCS; principal; 2018-09-20 07:25)
PROC: 4A023N7 Measurement of Cardiac Sampling and Pressure, Left Heart, Percutaneous Approach (ICD-10-PCS; 2018-09-20 07:25)
PROC: 02100Z9 Bypass Coronary Artery, One Artery from Left Internal Mammary, Open Approach (ICD-10-PCS; 2018-09-20 07:25)
PROC: B211YZZ Fluoroscopy of Multiple Coronary Arteries using Other Contrast (ICD-10-PCS; 2018-09-20 07:25)
PROC: 5A1221Z Performance of Cardiac Output, Continuous (ICD-10-PCS; 2018-09-20 07:25)
DX: I25.110 Atherosclerotic heart disease of native coronary artery with unstable angina pectoris (principal); I50.33 Acute on chronic diastolic (congestive) heart failure; I11.0 Hypertensive heart disease with heart failure; Z68.32 Body mass index [BMI] 32.0-32.9, adult; E78.5 Hyperlipidemia, unspecified; N40.0 Benign prostatic hyperplasia without lower urinary tract symptoms; K21.9 Gastro-esophageal reflux disease without esophagitis; E11.9 Type 2 diabetes mellitus without complications; I25.2 Old myocardial infarction; R09.02 Hypoxemia; D50.0 Iron deficiency anemia secondary to blood loss (chronic); E66.9 Obesity, unspecified; Z79.4 Long term (current) use of insulin; Z95.5 Presence of coronary angioplasty implant and graft
CPT/HCPCS: 36592; 36600; 71045; 80048; 80053; 80061; 80307; 82803; 82962; 83036; 83735; 84100; 84132; 84443; 85014; 85025; 85610; 85730; 86850; 86900; 86901; 86920; 87081; 93005; 93306; 93458; 93880; 94002; 94003; 94770; 97110; 97116; 97163; 97530; 99217

== ENCOUNTER 2018-11-08 21:57 | Inpatient (IN) | payer OTHER ==
[2018-11-08 23:18] LABS: ADD MAN DIFF? NO
[2018-11-08 23:22] LABS: BASOPHILS % 0.3 % (0.0-2.0); EOSINOPHILS # 0.1 10^3/ul (0.0-0.5); EOSINOPHILS % 0.6 % (0.0-7.0); HEMATOCRIT 39.5 % (42.0-52.0); HEMOGLOBIN 13.3 g/dl (14.0-18.0); LYMPHOCYTES # 3.5 10^3/ul (0.8-2.9); MEAN CORPUSCULAR HEMOGLOBIN 28.4 pg (29.0-33.0); MEAN CORPUSCULAR HGB CONC 33.7 g/dl (32.0-37.0); MEAN CORPUSCULAR VOLUME 84.2 fl (82.0-101.0); MEAN PLATELET VOLUME 9.7 fl (7.4-10.4); MONOCYTE # 1.3 10^3/ul (0.3-0.9); NEUTROPHILS % 68.7 % (39.0-77.0); PLATELET COUNT 366 10^3/UL (140-415); RED BLOOD COUNT 4.69 10^6/ul (4.70-6.10); RED CELL DISTRIBUTION WIDTH 12.3 % (11.5-14.5)
[2018-11-08 23:22] LABS: WHITE BLOOD COUNT 15.9 10^3/ul (4.8-10.8)
[2018-11-08 23:47] LABS: ANION GAP 12 (5-13); BLOOD UREA NITROGEN 14 mg/dl (7-20); CALCIUM 9.9 mg/dl (8.4-10.2); CARBON DIOXIDE 25 mmol/L (21-31); CHLORIDE 101 mmol/L (97-110); CREATININE 0.85 mg/dl (0.61-1.24); Estimated GFR > 60 mL/min (>60); GLUCOSE 159 mg/dl (70-220); POTASSIUM 4.4 mmol/L (3.5-5.1); SODIUM 138 mmol/L (135-144)
[2018-11-08 23:58] LABS: TROPONIN-I 0.041 ng/ml (0.000-0.120)
[2018-11-09] MEDS ORDERED: ACETAMINOPHEN 325 MG TAB PO ×2 (01:00→02:30)
[2018-11-09] MEDS: morphine 4 MG/ML VIAL IV (01:13)
[2018-11-09] MEDS: ONDANSETRON 4 MG INJ IV (01:47)
[2018-11-09] MEDS ORDERED: ALBUTEROL/IPRATROPIUM (NEB) 3 ML AMP HHN (02:30)
[2018-11-09] MEDS ORDERED: LORAZEPAM 2 MG INJ IV (02:30)
[2018-11-09] MEDS ORDERED: NON-FORMULARY/PATIENT OWN MED (Insulin Lispro (Humalog Kwikpen U-100) 15 UNIT) SQ (02:30)
[2018-11-09] MEDS ORDERED: ONDANSETRON 4 MG INJ IV (02:30)
[2018-11-09] MEDS ORDERED: NACL 0.9% 3 ML SYG IV (02:30)
[2018-11-09] MEDS ORDERED: NITROGLYCERIN (SL) 0.4 MG TAB SL (02:30)
[2018-11-09] MEDS ORDERED: MAGNESIUM HYDROXIDE 30ML CUP PO (02:30)
[2018-11-09] MEDS ORDERED: hydrALAzine 20 MG INJ IV (02:30)
[2018-11-09] MEDS ORDERED: DOCUSATE SODIUM 100 MG CAP PO (02:30)
[2018-11-09 03:16] LABS: FREE T4 (FREE THYROXINE) 1.22 ng/dl (0.64-1.79)
[2018-11-09 04:13] LABS: CREATINE KINASE 30 IU/L (23-200)
[2018-11-09 04:26] LABS: CK INDEX 0.7; CK-MB < 0.22 ng/ml (0.0-2.4); TROPONIN-I 0.037 ng/ml (0.000-0.120)
[2018-11-09] MEDS: INSULIN ASPART [NOVOLOG] 3 ML PEN SC ×5 (05:00→20:34)
[2018-11-09] MEDS: METOPROLOL (XL) 25 MG TAB PO (08:51)
[2018-11-09] MEDS: FUROSEMIDE 20 MG TAB PO (08:52)
[2018-11-09] MEDS: GEMFIBROZIL 600 MG TAB PO ×2 (08:52→20:24)
[2018-11-09] MEDS: CHOLECALCIFEROL 1,000 UNIT TAB PO (08:52)
[2018-11-09] MEDS: ASPIRIN (EC) 325 MG TAB PO (08:52)
[2018-11-09] MEDS: HEPARIN 5,000 UNIT/1 ML VIAL SC ×2 (09:07→20:46)
[2018-11-09] MEDS: INSULIN GLARGINE [LANTus] (100 UNITS/ML) SYG SC (09:23)
[2018-11-09 09:50] LABS: CREATINE KINASE 30 IU/L (23-200)
[2018-11-09 10:03] LABS: CK INDEX 0.7; CK-MB < 0.22 ng/ml (0.0-2.4); TROPONIN-I 0.035 ng/ml (0.000-0.120)
[2018-11-09 13:39] LABS: CREATINE KINASE 30 IU/L (23-200)
[2018-11-09 13:52] LABS: CK INDEX 0.7; CK-MB < 0.22 ng/ml (0.0-2.4); TROPONIN-I 0.023 ng/ml (0.000-0.120)
[2018-11-09 17:41] LABS: CREATINE KINASE 31 IU/L (23-200)
[2018-11-09 17:55] LABS: CK INDEX 0.7; CK-MB < 0.22 ng/ml (0.0-2.4); TROPONIN-I 0.021 ng/ml (0.000-0.120)
[2018-11-09] MEDS: ATORVASTATIN 40 MG TAB PO (20:24)
[2018-11-09] MEDS: morphine 2 MG INJ IV (20:24)
[2018-11-10] MEDS: morphine 2 MG INJ IV ×2 (00:16→12:20)
[2018-11-10] MEDS: ACCU-CHEK XX (02:00)
[2018-11-10 05:37] LABS: ADD MAN DIFF? NO
[2018-11-10 05:42] LABS: WHITE BLOOD COUNT 11.5 10^3/ul (4.8-10.8)
[2018-11-10 05:42] LABS: BASOPHILS % 0.3 % (0.0-2.0); EOSINOPHILS # 0.1 10^3/ul (0.0-0.5); EOSINOPHILS % 0.9 % (0.0-7.0); HEMATOCRIT 38.6 % (42.0-52.0); LYMPHOCYTES # 3.8 10^3/ul (0.8-2.9); LYMPHOCYTES % 33.1 % (15.0-51.0); MEAN CORPUSCULAR HEMOGLOBIN 28.4 pg (29.0-33.0); MEAN CORPUSCULAR HGB CONC 33.7 g/dl (32.0-37.0); MEAN CORPUSCULAR VOLUME 84.5 fl (82.0-101.0); MONOCYTE # 1.1 10^3/ul (0.3-0.9); MONOCYTES % 9.3 % (0.0-11.0); NEUTROPHIL # 6.4 10^3/ul (1.6-7.5); PLATELET COUNT 336 10^3/UL (140-415); RED BLOOD COUNT 4.57 10^6/ul (4.70-6.10); RED CELL DISTRIBUTION WIDTH 12.2 % (11.5-14.5)
[2018-11-10 06:09] LABS: ANION GAP 12 (5-13); BLOOD UREA NITROGEN 19 mg/dl (7-20); CALCIUM 9.4 mg/dl (8.4-10.2); CARBON DIOXIDE 27 mmol/L (21-31); CHLORIDE 100 mmol/L (97-110); CREATININE 0.85 mg/dl (0.61-1.24); Estimated GFR > 60 mL/min (>60); GLUCOSE 146 mg/dl (70-220); PHOSPHORUS 5.7 mg/dl (2.5-4.9); POTASSIUM 3.8 mmol/L (3.5-5.1); SODIUM 139 mmol/L (135-144)
[2018-11-10 06:15] LABS: CHOLESTEROL 167 mg/dl (100-200)
[2018-11-10 06:15] LABS: CHOL/HDL RATIO 4.3 RATIO; HDL CHOLESTEROL 38 mg/dl (28-71); LDL CHOLESTEROL,CALCULATED 78 mg/dl; TRIGLYCERIDES 255 mg/dl (0-149)
[2018-11-10 06:36] LABS: THYROID STIMULATING HORMONE 0.661 MIU/L (0.465-4.680)
[2018-11-10 06:56] LABS: HEMOGLOBIN A1C 7.3 % (0-5.9)
[2018-11-10] MEDS: INSULIN ASPART [NOVOLOG] 3 ML PEN SC ×2 (08:00→12:00)
[2018-11-10] MEDS: FUROSEMIDE 20 MG TAB PO (08:54)
[2018-11-10] MEDS: CHOLECALCIFEROL 1,000 UNIT TAB PO (08:54)
[2018-11-10] MEDS: ASPIRIN (EC) 81 MG TAB PO (08:55)
[2018-11-10] MEDS: METOPROLOL (XL) 25 MG TAB PO (08:55)
[2018-11-10] MEDS: GEMFIBROZIL 600 MG TAB PO (08:55)
[2018-11-10] MEDS: INSULIN GLARGINE [LANTus] (100 UNITS/ML) SYG SC (09:00)
[2018-11-10] MEDS: HEPARIN 5,000 UNIT/1 ML VIAL SC (09:01)
[2018-11-10] MEDS: HYDROCODONE/APAP (5/325) TAB PO (09:12)
[2018-11-10] MEDS: SOD CHLORIDE 0.9% 100 ML (10:00)
[2018-11-10] MEDS: IOHEXOL 100 ML (10:01)
== END 2018-11-10 16:16 | disposition home or self-care (01) | DRG 313 ==
LOC: E/R 21:57 → 6WM 11-09 00:45
DX: R07.89 Other chest pain (principal); Z95.1 Presence of aortocoronary bypass graft; I10 Essential (primary) hypertension; E78.5 Hyperlipidemia, unspecified; Z87.891 Personal history of nicotine dependence; N40.0 Benign prostatic hyperplasia without lower urinary tract symptoms; R11.2 Nausea with vomiting, unspecified; R20.0 Anesthesia of skin; J40 Bronchitis, not specified as acute or chronic; E11.9 Type 2 diabetes mellitus without complications
CPT/HCPCS: 36415; 71045; 71275; 76705; 80048; 80061; 82550; 82553; 82962; 83036; 83735; 84100; 84439; 84443; 84484; 85025; 93005; 93306; 99285-25